=== PATIENT | female | born 1960 | race Caucasian/White ===

== ENCOUNTER 2023-02-17 09:37 | Emergency (ER) | payer BC ==
[~2023-02-17] VITALS: Ht 160 cm; Wt 59.0 kg
--- NOTE | 2023-02-17 09:51 | NUR ---
THE PATIENT BIBS FOR C/O HEADACHE 04/05 AND HIGH BP SINCE YESTERDAY. DENIES NAUSEA/VOMITING AT THIS TIME. IN ROOM AIR AND DENIES SOB. RESPIRATION REGULAR AND UNLABORED. THE PATIENT IS ATTACHED TO THE MONITOR. WARM BLANKET PROVIDED FOR COMFORT. WILL CONTINUE TO MONITOR THE PATIENT.
[2023-02-17] MEDS ORDERED: SUMATRIPTAN SUCCINATE 6 MG/0.5 ML VIAL SQ ONE ×2 (10:25→10:30)
[2023-02-17] MEDS ORDERED: KETOROLAC TROMETHAMINE INJ 30 MG/ML VIAL ONE (10:25)
[2023-02-17] MEDS ORDERED: METOCLOPRAMIDE HCL 10 MG/2 ML VIAL ONE (10:25)
[2023-02-17] MEDS ORDERED: METOCLOPRAMIDE HCL 10 MG/2 ML VIAL IM ONE (10:30)
[2023-02-17] MEDS ORDERED: KETOROLAC TROMETHAMINE INJ 30 MG/ML VIAL IM ONE (10:30)
--- NOTE | 2023-02-17 10:31 | NUR ---
THE PATIENT IS TAKEN TO CT VIA [facility]
[2023-02-17] MEDS ORDERED: ACETAMINOPHEN ES 500 MG TABLET ONE (11:13)
[2023-02-17] MEDS ORDERED: ACETAMINOPHEN ES 500 MG TABLET PO ONE (11:30)
--- NOTE | 2023-02-17 11:44 | NUR ---
Patient discharged to home in stable condition. Written and verbal after care instructions given. Patient verbalizes understanding of instruction.
[2023-02-17 11:45] VITALS: BP 138/94
== END 2023-02-17 11:45 | disposition home or self-care (01) ==
LOC: ER 09:48
DX: R51.9 Headache, unspecified (principal); I10 Essential (primary) hypertension; Z60.2 Problems related to living alone
CPT/HCPCS: 70450-TC; 82962-TC; J1885; J2765; J3030